=== PATIENT | female | born 1995 | race Caucasian/White ===

== ENCOUNTER 2017-06-15 18:01 | Emergency (ER) | payer BC, MEDICAID ==
[~2017-06-15] VITALS: Ht 180.3 cm; Wt 95.5 kg
[~2017-06-15 18:01] MED LIST: ABILIFY 10MG TA10 MG PO; ABILIFY20 MG PO; ABILIFY5 MG; ATARAX 25MG25 MG/TAB PO; ATIVAN 1MG T1 MG/TAB PO; CARAFATE 1GM1 G PO; CELEXA40 MG PO; DUO-KAPS1 CAP PO; KLONOPIN 1MG1 MG PO; LAMICTAL 25MG T25 MG PO; LORTAB 2.5/5001 TAB PO; LORTAB 5/500 501 TAB PO; MELATONIN3 M1 PO; MIRALAX PA17 GM/Dose PO; NAPROSYN 2250 MG/TAB PO; PREDNISONE20 MG PO; PRIL40 PO; SINGULAIR; SINGULAIR 110 MG/TAB PO; TENEX PO; TOPAMAX 25MG25 MG PO; TRAZODO50 MG PO; TYLENOL 325MG325 MG PO; VALIUM5 MG/ML; XANAX 0.5MG0.5 MG PO; ZANTAC 150MG T150 MG PO; ZOFRAN 4MG T4 MG/TAB PO; ZOLOFT100 MG PO; ZONEGRAN 100MG100 MG PO; ZONEGRAN50 MG PO
[2017-06-15 18:05] VITALS: BP 122/80; PULSE 88; TEMP 98.7
[2017-06-15] MEDS ORDERED: XANAX XR1 M1 PO (18:28)
[2017-06-15] MEDS ORDERED: ENTOCORT EC3 MG PO (18:29)
[2017-06-15] MEDS ORDERED: BENTYL 20MG20 MG/TAB PO (18:29)
[2017-06-15] MEDS ORDERED: MELATONIN5 M1 PO (18:31)
[2017-06-15] MEDS ORDERED: AXID150 MG (18:32)
[2017-06-15] MEDS ORDERED: ZOLOFT 100MG100 MG PO (18:33)
[2017-06-15] MEDS ORDERED: ZOFRAN 4MG T4 MG/TAB PO (18:33)
[2017-06-15] MEDS ORDERED: SONATA 10MG10 MG (18:34)
[2017-06-15 19:05] LABS: HEMOGLOBIN 12.8 g/dl (12.0-15.0); MEAN CELL VOLUME 88 fl (80.0-95.0); MEAN CORPUSCULAR HEMOGLOBIN 29 pg (26.0-32.0); MEAN CORPUSCULAR HGB CONC 33 g/dl (33.0-37.0); MEAN PLATELET VOLUME 11.7 fl (7.4-10.4); PLATELET COUNT 245 K/mm3 (130-400); RED BLOOD COUNT 4.41 M/mm3 (4.10-5.30); REDCELL DISTRIBUTION WIDTH-CV 12.9 % (11.5-14.5)
[2017-06-15 19:44] LABS: BAND 2 % (0-10); BASOPHIL 1 % (0-2); EOSINOPHIL 1 % (0-4); LYMPHOCYTE 53 % (20.0-51.0); NEUTROPHILS 42 % (42.0-75.2); PLATELET ESTIMATE NORMAL (NORMAL)
== END 2017-06-15 20:00 | disposition home or self-care (01) ==
LOC: COL.ER 18:01
PROVIDERS: Family Medicine
DX: R07.89 Other chest pain (principal); F84.0 Autistic disorder

== ENCOUNTER 2018-04-03 21:48 | Emergency (ER) | payer MEDICAID ==
[~2018-04-03] VITALS: Ht 177.8 cm; Wt 95.0 kg
[~2018-04-03 21:48] MED LIST changes: +AXID150 MG; +BENTYL 20MG20 MG/TAB PO; +ENTOCORT EC3 MG PO; +MELATONIN5 M1 PO; +SONATA 10MG10 MG; +XANAX XR1 M1 PO; +ZOLOFT 100MG100 MG PO
[2018-04-03 21:52] VITALS: TEMP 97.1
[2018-04-03 22:32] LABS: COLLECTION METHOD CLEAN CATCH
[2018-04-03 22:36] LABS: BASO % 0.6 % (0.0-2.0); EOS # 0.1 (0.0-0.7); EOS % 1.4 % (0-4.0); GRAN # 3.4 (1.4-6.5); HEMATOCRIT 41.4 % (37.0-47.0); HEMOGLOBIN 13.7 g/dl (12.5-16.0); LYMPH # 3.2 (1.2-3.4); LYMPH % 44.8 % (20.0-51.0); MEAN CELL VOLUME 90 fl (80.0-100.0); MEAN CORPUSCULAR HEMOGLOBIN 30 pg (27.0-31.0); MEAN CORPUSCULAR HGB CONC 33 g/dl (33.0-37.0); MEAN PLATELET VOLUME 11.3 fl (7.4-10.4); MONO # 0.4 (0.1-0.6); MONO % 6.1 % (1.7-9.3); PLATELET COUNT 259 K/mm3 (130-400); RED BLOOD COUNT 4.58 M/mm3 (4.10-5.30); REDCELL DISTRIBUTION WIDTH-CV 12.4 % (11.5-14.5)
[2018-04-03 22:43] LABS: MUCOUS Present /lpf; PH 6 (5-8); URINE APPEARANCE Hazy; URINE BACTERIA None Seen /hpf; URINE BILIRUBIN Negative (NEGATIVE); URINE BLOOD Negative (NEGATIVE); URINE COLOR Yellow; URINE GLUCOSE Negative (NEGATIVE); URINE KETONE Negative (NEGATIVE); URINE LEUKOCYTE ESTERASE Trace (NEGATIVE); URINE NITRATE Negative (NEGATIVE); URINE PROTEIN(semi-quant) Negative (NEGATIVE); URINE RBC 0-2 /hpf; URINE UROBILINOGEN Negative (NEGATIVE)
[2018-04-03 22:46] LABS: ALBUMIN 4.7 gm/dL (3.5-5.0); BILIRUBIN,TOTAL 0.2 mg/dL (0.0-1.0); CALCIUM 10.2 mg/dL (8.4-10.2); CREATININE, serum 0.71 mg/dL (0.52-1.25); POTASSIUM 4.4 mmol/L (3.4-5.0); TOTAL PROTEIN 8.3 gm/dL (6.4-8.2)
[2018-04-04 00:21] VITALS: BP 117/82; PULSE 89
== END 2018-04-04 00:23 | disposition home or self-care (01) ==
LOC: COL.ER 21:48
PROVIDERS: Emergency Medicine
DX: R10.31 Right lower quadrant pain (principal); R63.0 Anorexia
CPT/HCPCS: J7030; Q9967

== ENCOUNTER → 2019-02-16 | Outpatient (CLI) | payer MEDICAID | LOC: COL.RAD 18:34 | DX: R05 Cough (principal); R79.89 Other specified abnormal findings of blood chemistry; R91.8 Other nonspecific abnormal finding of lung field; R06.02 Shortness of breath | CPT/HCPCS: Q9967 ==

== ENCOUNTER → 2019-02-16 | Outpatient (CLI) | payer MEDICAID ==
[2019-02-16 17:25] LABS: BASO % 0.5 % (0.0-2.0); EOS # 0.1 (0.0-0.7); EOS % 2.2 % (0-4.0); GRAN # 3.8 (1.4-6.5); GRAN % 62.5 % (42.2-75.2); HEMATOCRIT 42.6 % (37.0-47.0); HEMOGLOBIN 13.9 g/dl (12.5-16.0); LYMPH # 1.6 (1.2-3.4); MEAN CELL VOLUME 91 fl (80.0-100.0); MEAN CORPUSCULAR HEMOGLOBIN 30 pg (27.0-31.0); MEAN CORPUSCULAR HGB CONC 33 g/dl (33.0-37.0); MEAN PLATELET VOLUME 10.8 fl (7.4-10.4); MONO # 0.5 (0.1-0.6); MONO % 7.6 % (1.7-9.3); PLATELET COUNT 267 K/mm3 (130-400); RED BLOOD COUNT 4.66 M/mm3 (4.10-5.30); REDCELL DISTRIBUTION WIDTH-CV 12.9 % (11.5-14.5)
[2019-02-16 17:34] LABS: ALBUMIN 4.9 gm/dL (3.5-5.0); BILIRUBIN,TOTAL 0.2 mg/dL (0.0-1.0); CALCIUM 9.7 mg/dL (8.4-10.2); CREATININE, serum 0.69 (0.52-1.25); POTASSIUM 4.4 mmol/L (3.4-5.0); TOTAL PROTEIN 8.6 gm/dL (6.4-8.2)
== END ==
LOC: COL.LAB 16:55
PROVIDERS: Family Medicine
DX: R06.02 Shortness of breath (principal)